=== PATIENT | male | born 1965 | race Caucasian/White ===

== ENCOUNTER 2021-09-19 06:19 | Day surgery (SDC) | payer OTHER ==
[~2021-09-19] VITALS: Ht 183 cm; Wt 107.0 kg
[~2021-09-19 06:19] MED LIST: LOSARTAN POTASS50 MG PO; PRAVASTATIN SOD80 MG PO; XIGDUO XR 2.51 EACH PO; XYZAL5 MG PO
[2021-09-20 07:00] LABS: BASOPHIL 0.1 % (0-2); EOSINOPHIL 0.1 % (0-5); HCT 36.6 % (42.0-52.0); HGB 12.5 g/dl (13.2-18.0); LYMPHOCYTE 6.8 % (15-48); MCH 30.9 pg (25.0-31.0); MCHC 34.2 g/dL (32.0-36.0); MCV 90.4 fL (78.0-100.0); MONOCYTE 5.6 % (0-12); MPV 10.3 fL (6.0-9.5); NRBC 0; PLT 212 K/uL (150-400); RBC 4.05 M/uL (4.70-6.00); RDW 12.7 % (11.5-14.0); WBC 17.4 K/uL (4.0-10.5)
[2021-09-20 07:47] LABS: BUN/CREAT RATIO (CALC) 37.3 RATIO; CREATININE 0.59 mg/dL (0.67-1.17)
--- NOTE | 2021-09-20 08:38 | NUR ---
PT. HAD A RTKR ON 09/20/21. PT WILL D/C HOME WITH SPOUSE ON 09/21/21. PT HAS A RW. PT REQUESTED [facility]. FIRST APPT. IS 09/21/21 @ 2:00 P.M.
[2021-09-20] MEDS ORDERED: XARELTO10 MG PO (09:04)
[2021-09-20] MEDS ORDERED: OXYCODONE-ACET1 EAC1 PO (09:04)
[2021-09-20] MEDS ORDERED: FEOSOL325 MG PO (09:04)
== END 2021-09-20 11:30 | disposition home or self-care (01) ==
LOC: FAS 06:19 → FOFB 06:19 → FAS 09-20 11:30
PROVIDERS: Legal Medicine
DX: M17.11 Unilateral primary osteoarthritis, right knee (principal); M21.161 Varus deformity, not elsewhere classified, right knee; M25.761 Osteophyte, right knee; M25.461 Effusion, right knee; I10 Essential (primary) hypertension; E11.9 Type 2 diabetes mellitus without complications; E78.5 Hyperlipidemia, unspecified; Z96.652 Presence of left artificial knee joint; Z88.2 Allergy status to sulfonamides
CPT/HCPCS: 36415; 73560; 80048; 82962; 85025; 86850; 86900; 86901; 94010; 97162; 97166; 97530-GP; 97535; C1713; C1776; J0171; J0697; J0735; J1100; J1170; J1885; J2250; J2270; J2405; J2704; J2795; J3010; J7120